=== PATIENT | female | born 1935 | race Caucasian/White ===

== ENCOUNTER 2017-09-14 10:46 | Outpatient (CLI) | payer MEDICARE, OTHER ==
--- NOTE | 2017-09-14 11:49 | RAD ---
AP PELVIS: History: Remote fall with persistent pelvic pain. FINDINGS: Femoral heads maintain normal contour. Joint spaces are symmetric. Minimal symmetric degenerative bruce nge seen at both hips. The bony pelvis is intact and unremarkable. No lytic or blastic lesions seen. Surgical clips overlie the lower pelvis. IMPRESSION: No acute abnormality. POS: [facility]
== END 2017-09-14 10:47 | disposition home or self-care (01) ==
LOC: TBSIIMAG 10:46
PROVIDERS: ATTEND Neurological Surgery
DX: R10.2 Pelvic and perineal pain (principal); M53.3 Sacrococcygeal disorders, not elsewhere classified
CPT/HCPCS: 72170

== ENCOUNTER 2019-08-31 08:35 | Outpatient (CLI) | payer MEDICARE, OTHER ==
[2019-08-31 14:46] LABS: #Basophils 0.1 thou/uL (0.0-0.2); #Eosinphils 0.2 thou/uL (0.0-0.7); #Lymphocytes 1.6 thou/uL (1.20-3.40); #Monocytes 0.6 thou/uL (0.11-0.59); #Neutrophils 3.7 thou/uL (1.40-6.50); %Basophils 1.3 % (0.0-1.0); %Eosinophils 2.5 % (0.0-10.0); %Lymphocytes 26.5 % (21.0-51.0); %Neutrophils 59.8 % (42.0-75.0); Mean Corpuscular HGB CONC 33.8 g/dL (32.0-36.0); Mean Corpuscular Volume 97.6 fL (78.0-98.0); Mean Platelet Volume 8.4 fL (7.4-10.4); Platelet Count 235 thou/uL (130-400); RBC Distribution Width 11.5 % (11.5-14.5); Red Blood Cell (RBC) Count 3.96 mill/uL (4.20-5.40); White Blood Cell (WBC) Count 6.2 thou/uL (4.8-10.8)
[2019-08-31 14:51] LABS: Bacteria/HPF None Seen HPF (None Seen); Bilirubin Negative (Negative); Blood, Urine Negative (Negative); Clarity Clear (Clear); Glucose, Urine (Dipstick) Normal (Negative); Leukocyte 25 Leu/uL (Negative); Nitrite Negative (Negative); Protein, Urine (Dipstick) Negative (Neg-Trace); RBC/HPF None Seen HPF (0-3); Squamous Epithelial 0-3 HPF (0-3); Urobilinogen Normal mg/dL (Less than 2); WBC/HPF 0-3 HPF (0-3)
[2019-08-31 14:53] LABS: Prothrombin Time 13.3 SEC (12.0-14.7)
[2019-08-31 15:08] LABS: Anion Gap 16 mmol/L (10-20); BUN (Urea Nitrogen) 28 mg/dL (9.8-20.1); Calc. Creatinine Clearance 0 mL/min (70-130); Calcium 9.8 mg/dL (7.8-10.44); Carbon Dioxide 23 mmol/L (23-31); Chloride 104 mmol/L (98-107); Estimated GFR-MDRD 41; Glucose 82 mg/dL (83-110); Potassium 4.7 mmol/L (3.5-5.1); Sodium 138 mmol/L (136-145)
--- NOTE | 2019-09-01 11:53 | EKG ---
Test Reason : Blood Pressure : / mmHG Vent. Rate : 052 BPM Atrial Rate : 052 BPM P-R Int : 122 ms QRS Dur : 098 ms QT Int : 448 ms P-R-T Axes : 030 -36 072 degrees QTc Int : 416 ms Sinus bradycardia Left axis deviation Incomplete right bundle branch block Abnormal ECG No previous ECGs available Confirmed by ROYCE MA ([id number]) on 09/01/2019 11:53:31 AM Referred By: KALI Confirmed By:ROYCE MA
== END 2019-08-31 08:36 | disposition home or self-care (01) ==
LOC: LABBT 08:35
PROVIDERS: ATTEND Orthopaedic Surgery
DX: Z01.818 Encounter for other preprocedural examination (principal); M17.11 Unilateral primary osteoarthritis, right knee
CPT/HCPCS: 80048; 81001; 85025; 85610; 87081; 93005; 93010

== ENCOUNTER 2019-09-05 05:32 | Day surgery (SDC) | payer MEDICARE, OTHER ==
[2019-08-31 12:59] VITALS: BMI 25.0
[2019-09-05] MEDS ORDERED: Sodium Chloride 0.9% 100 ML ONE (05:57)
[2019-09-05] MEDS ORDERED: Tranexamic Acid 1,000 MG/10 ML VIAL ONE ×2 (05:58→09:07)
[2019-09-05] MEDS ORDERED: Fentanyl 100 MCG/2 ML VIAL ONE ×5 (06:04→10:09)
[2019-09-05] MEDS ORDERED: Midazolam HCl 2 mg/2 ml Vial ONE (06:21)
[2019-09-05] MEDS ORDERED: Lidocaine 1% (PF) 30 ML VIAL ONE (06:22)
[2019-09-05] MEDS ORDERED: Famotidine/PF 20 mg/2ml Vial ONE (06:27)
[2019-09-05] MEDS ORDERED: Acetaminophen 325 MG TAB PO PRN ×2 (06:56→07:29)
[2019-09-05] MEDS ORDERED: Promethazine HCl 25 MG/ML VIAL IM PRN ×3 (06:56→08:11)
[2019-09-05] MEDS ORDERED: HYDROcodone/Acetaminophen 10/325 mg Tablet PO PRN ×3 (06:56→07:29)
[2019-09-05] MEDS ORDERED: Zolpidem Tartrate 5 MG TAB PO PRN ×2 (06:56→07:29)
[2019-09-05] MEDS ORDERED: Ondansetron PF 4 MG/2 ML Vial IVP PRN ×2 (06:56→07:29)
[2019-09-05] MEDS ORDERED: diphenhydrAMINE 25 MG CAP PO PRN (06:56)
[2019-09-05] MEDS ORDERED: Acetaminophen 500 MG TAB PO PRN (06:57)
[2019-09-05] MEDS ORDERED: traMADol HCl 50 MG TAB PO PRN (07:29)
[2019-09-05] MEDS ORDERED: Ropivacaine HCl/PF 250 ML in Premix Bag 1 BAG NERVE BLCK SCH (07:29)
[2019-09-05] MEDS ORDERED: Fentanyl 100 MCG/2 ML VIAL IV PRN (07:30)
[2019-09-05] MEDS ORDERED: Ondansetron HCl/PF 4 MG/2 ML Vial IVP PRN (08:11)
[2019-09-05] MEDS ORDERED: Promethazine HCl 25 MG/ML VIAL SLOW IVP PRN (08:11)
[2019-09-05] MEDS ORDERED: Aspirin 81 mg Enteric Coated Tablet PO SCH (09:00)
--- NOTE | 2019-09-05 09:29 | RAD ---
EXAM: Right knee: 2 views INDICATIONS: Postop follow-up. Knee replacement. COMPARISON: None. FINDINGS: Knee prosthesis is noted. Postoperative changes noted. Components appear in adequate positi on and alignment. IMPRESSION: Postop right knee
[2019-09-05] MEDS ORDERED: EPINEPHrine 1 MG/ML AMP ONE (10:29)
[2019-09-05] MEDS ORDERED: PROPOFOL 200 MG/20 ML VIAL ONE (10:37)
[2019-09-05] MEDS ORDERED: EPHEDRINE 25 MG/5 ML SYRINGE ONE (10:37)
[2019-09-05] MEDS ORDERED: Lidocaine 1% PF 5 ML VIAL ONE (10:37)
[2019-09-05] MEDS ORDERED: Ondansetron PF 4 MG/2 ML Vial ONE (10:37)
[2019-09-05] MEDS ORDERED: Ropivacaine 0.2% HCl/PF (40 MG/20 ML VIAL) ONE (10:37)
[2019-09-05] MEDS ORDERED: Bupivacaine HCl 0.5%/Epinephrine 1:200,000/PF 30 ml Vial ONE (10:37)
[2019-09-05] MEDS ORDERED: Dexamethasone 20 MG/5 ML VIAL ONE (10:37)
[2019-09-05] MEDS ORDERED: Labetalol HCl 100 MG/20 ML VIAL ONE (10:37)
[2019-09-05] MEDS ORDERED: Acetaminophen 500 MG TAB ONE (10:42)
--- NOTE | 2019-09-05 12:28 | OP ---
DATE OF PROCEDURE: 09/05/2019 PROCEDURE PERFORMED: Right total knee arthroplasty using [place] Triathlon 4 femur, 3 tibia, 11 mm CS X3 polyethylene, and A29 patella. FRONT END ALIGNMENT SPECIALIST: Mica Montoya PA-C. ESTIMATED BLOOD LOSS: Minimal. SPECIMENS: None. DRAINS: None. COMPLICATIONS: None. PROCEDURE IN DETAIL: After informed consent was obtained in the preoperative holding area, the patient was taken to the operative suite where general anesthesia was induced. Once adequate level of general anesthesia was obtained, the patient was positioned and a well-padded tourniquet was placed around the right proximal thigh. The right lower extremity was then prepped and draped in the usual sterile fashion. Prior to exsanguination, a time-out was called and all members of the surgical team agreed upon site, surgeon, and patient. The extremity was then exsanguinated and the tourniquet was raised. A midline longitudinal incision was then made directly over the patella extending 2 fingerbreadths above the superior pole of the patella and 2 fingerbreadths inferior to the inferior patellar pole of the patella. Deeper subcutaneous layers were dissected sharply and local bleeding was controlled with Bovie electrocautery. A quad tendon longitudinal split was then made sharply and a median parapatellar arthrotomy was carried out both sharp and with Bovie electrocautery, carried down to 1 fingerbreadth medial to the tibial tubercle. The knee was then placed into flexion and the patella was everted nicely, and a copious fat pad ectomy was performed allowing for greater exposure of the tibia. The computer-assisted distal femoral fiducial was then placed and pinned firmly, and the distal femoral cutting guide was pinned firmly into place. The oscillating saw was then used to remove the appropriate amount of bone. The 4-in-1 cutting block was then placed on the distal femur and the oscillating saw was used to remove the appropriate amount of bone off the anterior, posterior, and chamfer cuts. After completion of bone cuts, the anterior cruciate ligament was resected sharply and the posterior cruciate ligament retractor was placed and the tibia was subluxed for better exposure. Partial meniscectomies were carried out, and the tibial computer-assisted fiducial was pinned, and the cutting guide was placed. Oscillating saw was then used to remove the bone, with Hohmann retractors used to take care and protect the collateral ligaments. After the tibial resection was performed, a laminar axle bearing polisher was placed in between the freshened bone cuts. The knee placed at 90 degrees and further bilateral meniscectomies were carried out, and the curved osteotome and curettage were used to remove any excess bone spurs in the posterior compartment. The trial femoral component, tibial baseplate were placed with the appropriate polyethylene trial insert with an appropriate polyethylene spacer and patellar button. The knee was taken through full range of motion with flexion and extension from 0 to 90 degrees and patellar broach squarely in the trochlea without any squinting or subluxation noted. The knee was also stable to varus and valgus stressing at 0, 15, 45, and 90 degrees of flexion. The drawer was negative. All trial components were then removed and the keel punch was used to provide the appropriate defect in the tibia with a mallet. The freshened bone cuts were copiously irrigated with pulsatile lavage of about 1.5 L to remove all excess debris. The freshened bone cuts were then dried with suction and lap sponge. The knee was placed in flexion and retractors were placed to provide access to all bone cuts. Tobramycin-impregnated methyl methacrylate cement was then placed on the freshened bone cuts and implants which were malleted firmly into place. Curettage and Blevins elevators were used to remove any excess bone cement. The knee was placed into full extension and the patellar button was placed under compression, and the cement was allowed to cure. Once completed, the components were again taken through full range of motion and copious irrigation of the knee was carried out with another liter of normal saline. All components were inspected fully with full range of motion and varus and valgus stressing. There was no laxity noted and full extension was observed clinically. Primary closure was accomplished with #2 interrupted Vicryl stitch of the arthrotomy defect. This was oversewn with a #2 running Quill barbed stitch. The gravitational platelet system was then injected into the arthrotomy prior to closure. The subcutaneous layer was then closed with a running 0 barbed Monocryl stitch and skin closure accomplished with a running subcuticular 3-0 Monocryl barbed Quill stitch and augmented with cement on the skin. Tourniquet was lowered. Good spontaneous return of distal pulses was noted clinically and a sterile dressing was applied to the incision. The procedure was terminated without any complications. The patient was awakened in the operative suite and the was removed, and the patient was taken to the recovery room in stable condition. Job ID: [id number]
[2019-09-05] MEDS: HYDROcodone/Acetaminophen 10/325 mg Tablet PO PRN ×3 (13:31→22:17)
[2019-09-05] MEDS: Ketorolac Tromethamine 30 MG/ML VIAL IVP SCH ×2 (13:32→22:17)
[2019-09-05] MEDS: CEFAZOLIN 2 GM in Premix Bag 1 BAG IVPB SCH ×2 (13:33→22:16)
[2019-09-05] MEDS: Sodium Chloride 0.9% 1,000 ML IV SCH ×3 (13:33→20:09)
--- NOTE | 2019-09-05 13:43 | PDOC.HHP ---
Hospitalist HPI - History of Present Illness Elective right knee arthroplasty History of Present Illness: Consult: Medical management Referral source: Dr. Berger Ms. Belllo 83-year-old lady with past medical history of CAD, hypothyroidism, hypertension, who presents for elective right total knee arthroplasty. She is reportedly been doing this problem for the last 6 months and experiencing chronic pain of her right knee. She had a torn meniscus and sought evaluation by an orthopedic surgeon. We have been consulted for medical management of her chronic conditions. Of note, she has coronary artery disease status post 3 stents in 2016 and 2017. She has been off Plavix for over a year. Additionally she has medications for hypothyroidism, depression, hyperlipidemia , hypertension. Hospitalist ROS - Review of Systems Constitutional: denies: fever, chills, sweats, weakness, malaise, other Eyes: denies: pain, vision change, conjunctivae inflammation, eyelid inflammation, redness, other ENT: denies: ear pain, ear discharge, nose pain, nose discharge, nose congestion , mouth pain, mouth swelling, throat pain, throat swelling, other Respiratory: denies: cough, dry, shortness of breath, hemoptysis, SOB with excertion, pleuritic pain, sputum, wheezing, other Cardiovascular: denies: chest pain, palpitations, orthopnea, paroxysmal noc. dyspnea, edema, light headedness, other Gastrointestinal: denies: nausea, vomiting, abdominal pain, diarrhea, constipation, melena, hematochezia, other Genitourinary: denies: dysuria, frequency, incontinence, hematuria, retention, other Musculoskeletal: reports: leg pain. denies: neck pain, shoulder pain, arm pain , back pain, hand pain, foot pain, other Skin: denies: rash, lesions, marita, bruising, other Neurological: denies: weakness, numbness, incoordination, change in speech, confusion, seizures, other - Medication Medications: Active Medications Generic Name Dose Route Start Last Admin Trade Name Freq PRN Reason Stop Dose Admin Hydrocodone Bitart/Acetaminophen 2 tab 09/05/19 07:29 09/05/19 13:31 [place] 10/325 PO 2 tab Q4H PRN Administration PAIN (4-6) Cefazolin Sodium/Dextrose 2 gm 50 mls @ 100 mls/hr 09/05/19 14:00 09/05/19 13 :33 / Device IVPB 09/05/19 22:29 50 mls Q8HR SABA Administration Sodium Chloride 1,000 mls @ 100 mls/hr 09/05/19 07:00 09/05/19 13:33 Normal Saline 0.9% IV 1,000 mls .Q10H SABA Administration Ketorolac Tromethamine 15 mg 09/05/19 14:00 09/05/19 13:32 Toradol IVP 09/07/19 14:01 15 mg Q8HR SABA Administration Hospitalist History - Past Medical History Cardiac: reports: CAD, HTN Pulmonary: reports: no pertinent history [employer] TECH[employer]ICIAN: reports: no pertinent history Gastrointestinal: reports: GERD Heme/Onc: reports: no pertinent history Hepatobiliary: reports: no pertinent history Psych: reports: no pertinent history Musculoskeletal: reports: Osteoarthritis Rheumatologic: reports: no pertinent history Infectious Disease: reports: no pertinent history ENT: reports: no pertinent history Renal/: reports: no pertinent history Endocrine: reports: Hyperthyroidism Dermatology: reports: no pertinent history - Past Surgical History Past Surgical History: reports: Breast Biopsy, Hysterectomy - Family History Family History: reports: no pertinent history - Social History Smoking Status: Former smoker Alcohol: reports: None Drugs: reports: none Living Situation: With Family Activity level: uses cane/walker - Exam General Appearance: NAD, awake alert Eye: PERRL, anicteric sclera ENT: normocephalic atraumatic, no oropharyngeal lesions, moist mucosa Neck: supple, symmetric, no JVD, no thyromegaly, no lymphadenopathy, no carotid bruit Heart: RRR, no murmur, no gallops, no rubs, normal peripheral pulses Respiratory: CTAB, no wheezes, no rales, no ronchi, normal chest expansion, no tachypnea, normal percussion Gastrointestinal: soft, non-tender, non-distended, normal bowel sounds, no palpable masses, no hepatomegaly, no splenomegaly, no bruit Extremities: no cyanosis, no clubbing, no edema Skin: normal turgor, no lesions, no rashes Neurological: cranial nerve grossly intact, normal sensation to touch, no weakness, no focal deficits, no new deficit Musculoskeletal: normal tone, normal strength, no muscle wasting Psychiatric: normal affect, normal behavior, A&O x 3 Hospitalist Results - Labs Result Diagrams: 09/06/19 04:50 Lab results: Labs from 08/31 WBC count 6.2 hemoglobin 13 hematocrit 38.6 MCV 97.6 platelet count 235 sodium 138 potassium 4.7 chloride 104 creatinine 1.25 BUN 28 glucose 82 calcium 9.8 X-ray of the right knee shows knee prosthesis is noted as well as postoperative changes. The components of the prosthesis appear in adequate position and alignment. Hospitalist H&P A/P - Problem (1) Status post arthroscopic knee surgery Status: Acute (2) Coronary artery disease Code(s): I25.10 - ATHSCL HEART DISEASE OF [place] CORONARY ARTERY W/O ANG PCTRS Status: Acute (3) HTN (hypertension) Code(s): I10 - ESSENTIAL (PRIMARY) HYPERTENSION Status: Acute (4) Hypothyroidism Code(s): E03.9 - HYPOTHYROIDISM, UNSPECIFIED Status: Acute (5) GERD (gastroesophageal reflux disease) Code(s): K21.9 - GASTRO-ESOPHAGEAL REFLUX DISEASE WITHOUT ESOPHAGITIS Status: Acute (6) HLD (hyperlipidemia) Code(s): E78.5 - HYPERLIPIDEMIA, UNSPECIFIED Status: Acute (7) Depression Code(s): F32.9 - MAJOR DEPRESSIVE DISORDER, SINGLE EPISODE, UNSPECIFIED Status : Acute - Plan Plan: She is postop day 1 Encourage early mobilization as per PT/surgery recommendations Continue incentive spirometry Resume medications from home for chronic conditions including Coreg, aspirin, atorvastatin, levothyroxine, montelukast, pantoprazole, and citalopram Pain appears adequately well controlled, continue with the current regimen Thank you for this consultation. We will continue to follow along.
[2019-09-05] MEDS: Aspirin 81 mg Enteric Coated Tablet PO SCH ×2 (15:54→20:07)
[2019-09-05] MEDS: Ascorbic Acid 500 mg Chewable Tablet PO SCH (15:54)
[2019-09-05] MEDS: Carvedilol 6.25 MG TAB PO SCH ×2 (15:54→18:33)
[2019-09-05] MEDS: Citalopram 10 MG TAB PO SCH (15:55)
[2019-09-05] MEDS: Montelukast Sodium 10 mg Tablet PO SCH (20:07)
[2019-09-05] MEDS: Atorvastatin Calcium 10 MG TAB PO SCH (20:07)
[2019-09-05] MEDS: Oxybutynin 5 MG TAB PO SCH (20:07)
[2019-09-05] MEDS ORDERED: LEGATRIN PO SCH (21:00)
[2019-09-06] MEDS: HYDROcodone/Acetaminophen 10/325 mg Tablet PO PRN ×3 (02:14→11:29)
[2019-09-06 05:11] LABS: Hemoglobin 9.6 g/dL (12.0-16.0); Mean Corpuscular HGB CONC 34.2 g/dL (32.0-36.0); Mean Corpuscular Hemoglobin 33.7 pg (27.0-31.0); Mean Corpuscular Volume 98.4 fL (78.0-98.0); Mean Platelet Volume 8.3 fL (7.4-10.4); Platelet Count 187 thou/uL (130-400); RBC Distribution Width 11.4 % (11.5-14.5); Red Blood Cell (RBC) Count 2.84 mill/uL (4.20-5.40)
[2019-09-06] MEDS: Levothyroxine Sodium 112 MCG TAB PO SCH (05:52)
[2019-09-06] MEDS: Ketorolac Tromethamine 30 MG/ML VIAL IVP SCH ×3 (05:53→22:11)
[2019-09-06] MEDS: Ferrous Gluconate 324 MG TAB PO SCH ×2 (07:12→17:26)
[2019-09-06] MEDS: Multivitamin W/ Minerals 1 TAB PO SCH (08:59)
[2019-09-06] MEDS: Aspirin 81 mg Enteric Coated Tablet PO SCH ×2 (08:59→20:02)
[2019-09-06] MEDS: Senokot S 8.6-50 MG TAB PO SCH ×2 (09:00→20:04)
[2019-09-06] MEDS: Carvedilol 6.25 MG TAB PO SCH (09:00)
[2019-09-06] MEDS: Ascorbic Acid 500 mg Chewable Tablet PO SCH (09:00)
[2019-09-06] MEDS: Sodium Chloride 0.9% 1,000 ML IV SCH ×2 (09:01→12:25)
[2019-09-06] MEDS: Citalopram 10 MG TAB PO SCH (09:59)
[2019-09-06] MEDS: traMADol HCl 50 MG TAB PO PRN ×2 (09:59→20:03)
[2019-09-06] MEDS ORDERED: Loperamide HCl 2 MG CAP PO PRN (11:28)
--- NOTE | 2019-09-06 14:14 | PDOC.HOSPP ---
- Subjective Encounter Date: 09/06/19 Encounter Time: 14:11 Subjective: Has had episodes of diarrhea overnight, loose and watery. Otherwise she is participating in physical therapy without complaints. Pain is well controlled. - Objective Vital Signs & Weight: Vital Signs (12 hours) Temp Pulse Resp BP BP Pulse Ox 09/06/19 09:00 131/65 09/06/19 08:30 94 L 09/06/19 07:09 98.2 F 65 16 131/65 94 L Weight Weight 150 lb I&O: 09/05/19 09/06/19 09/07/19 06:59 06:59 06:59 Intake Total 1300 900 Output Total 800 1025 Balance 500 -125 Result Diagrams: 09/06/19 04:50 Hospitalist ROS - Review of Systems All other systems reviewed; all pertinent +/- noted in HPI/Subj - Medication Medications: Active Medications Generic Name Dose Route Start Last Admin Trade Name Freq PRN Reason Stop Dose Admin Hydrocodone Bitart/Acetaminophen 2 tab 09/05/19 07:29 09/06/19 11:29 [place] 10/325 PO 2 tab Q4H PRN Administration PAIN (4-6) Ascorbic Acid 500 mg 09/05/19 09:00 09/06/19 09:00 Vitamin C PO 500 mg DAILY SABA Administration Aspirin 81 mg 09/05/19 09:00 09/06/19 08:59 Ecotrin PO 81 mg BID SABA Administration Atorvastatin Calcium 10 mg 09/05/19 21:00 09/05/19 20:07 Lipitor PO 10 mg HS SABA Administration Carvedilol 6.25 mg 09/06/19 09:00 09/06/19 09:00 Coreg PO 6.25 mg 0900 SABA Administration Cholecalciferol 1,000 units 09/05/19 09:00 09/06/19 08:59 Vitamin D3 PO 1,000 units DAILY SABA Administration Citalopram Hydrobromide 10 mg 09/05/19 09:00 09/06/19 09:59 Celexa PO 10 mg DAILY SABA Administration Fentanyl 50 mcg 09/05/19 07:30 09/06/19 00:27 Sublimaze IV 50 mcg Q1H PRN Administration BREAKTHROUGH PAIN Ferrous Gluconate 324 mg 09/06/19 08:00 09/06/19 07:12 Fergon PO 324 mg BID-WM SABA Administration Sodium Chloride 1,000 mls @ 100 mls/hr 09/05/19 07:00 09/06/19 12:25 Normal Saline 0.9% IV Not Given .Q10H SABA Ropivacaine 250 ml/ Device 250 mls @ 0 mls/hr 09/05/19 07:29 09/06/19 09:54 NERVE BLCK 09/07/19 07:30 250 mls INF SABA Administration As Directed Iron/Minerals/Multivitamins 1 tab 09/06/19 09:00 09/06/19 08:59 Theragran M PO 1 tab DAILY SABA Administration Ketorolac Tromethamine 15 mg 09/05/19 14:00 09/06/19 14:00 Toradol IVP 09/07/19 14:01 15 mg Q8HR SABA Administration Levothyroxine Sodium 112 mcg 09/06/19 06:00 09/06/19 05:52 Synthroid PO 112 mcg 0600 SABA Administration Loperamide HCl 2 mg 09/06/19 11:28 09/06/19 12:24 Imodium PO 2 mg DAILYPRN PRN Administration Diarrhea/Loose Stools Montelukast Sodium 10 mg 09/05/19 21:00 09/05/19 20:07 Singulair PO 10 mg HS SABA Administration Oxybutynin Chloride 5 mg 09/05/19 21:00 09/05/19 20:07 Ditropan PO 5 mg HS SABA Administration Pantoprazole Sodium 40 mg 09/05/19 21:00 09/05/19 20:07 Protonix PO 40 mg HS SABA Administration Senna/Docusate Sodium 2 tab 09/06/19 09:00 09/06/19 09:00 Senokot S PO Not Given BID SABA Sodium Chloride 10 ml 09/05/19 06:56 09/06/19 14:04 Flush - Normal Saline IVF 10 ml PRN PRN Administration Saline Flush Tramadol HCl 100 mg 09/05/19 07:29 09/06/19 09:59 Ultram PO 100 mg Q6H PRN Administration Moderate Pain 4-6 - Exam General Appearance: NAD, awake alert Eye: PERRL, anicteric sclera ENT: normocephalic atraumatic, no oropharyngeal lesions, moist mucosa Neck: supple, symmetric, no JVD, no thyromegaly, no lymphadenopathy, no carotid bruit Heart: RRR, no murmur, no gallops, no rubs, normal peripheral pulses Respiratory: CTAB, no wheezes, no rales, no ronchi, normal chest expansion, no tachypnea, normal percussion Gastrointestinal: soft, non-tender, non-distended, normal bowel sounds, no palpable masses, no hepatomegaly, no splenomegaly, no bruit Extremities: no cyanosis, no clubbing, no edema Extremities - other findings: bandage on right knee, intact, clean Skin: normal turgor, no lesions, no rashes Neurological: cranial nerve grossly intact, normal sensation to touch, no weakness, no focal deficits, no new deficit Musculoskeletal: normal tone, normal strength, no muscle wasting Psychiatric: normal affect, normal behavior, A&O x 3 Hosp A/P (1) Status post arthroscopic knee surgery Status: Acute (2) Coronary artery disease Code(s): I25.10 - ATHSCL HEART DISEASE OF [place] CORONARY ARTERY W/O ANG PCTRS Status: Acute (3) HTN (hypertension) Code(s): I10 - ESSENTIAL (PRIMARY) HYPERTENSION Status: Acute (4) Hypothyroidism Code(s): E03.9 - HYPOTHYROIDISM, UNSPECIFIED Status: Acute (5) GERD (gastroesophageal reflux disease) Code(s): K21.9 - GASTRO-ESOPHAGEAL REFLUX DISEASE WITHOUT ESOPHAGITIS Status: Acute (6) HLD (hyperlipidemia) Code(s): E78.5 - HYPERLIPIDEMIA, UNSPECIFIED Status: Acute (7) Depression Code(s): F32.9 - MAJOR DEPRESSIVE DISORDER, SINGLE EPISODE, UNSPECIFIED Status : Acute - Plan Continue probiotics for diarrhea, could be antibiotic associated. Imodium PRN Continue IS and physical therapy Pain control as per surgery team Continue other medication from home for chronic conditions We will continue to follow along with you.
[2019-09-06] MEDS ORDERED: Carvedilol 3.125 MG TAB PO SCH (17:00)
[2019-09-06] MEDS: Montelukast Sodium 10 mg Tablet PO SCH (20:02)
[2019-09-06] MEDS: Atorvastatin Calcium 10 MG TAB PO SCH (20:02)
[2019-09-06] MEDS: Oxybutynin 5 MG TAB PO SCH (20:03)
[2019-09-07] MEDS: HYDROcodone/Acetaminophen 10/325 mg Tablet PO PRN ×3 (02:40→13:02)
[2019-09-07] MEDS: Sodium Chloride 0.9% 1,000 ML IV SCH (02:41)
[2019-09-07] MEDS: Ketorolac Tromethamine 30 MG/ML VIAL IVP SCH ×2 (05:09→14:21)
[2019-09-07] MEDS: Levothyroxine Sodium 112 MCG TAB PO SCH (05:09)
[2019-09-07] MEDS: traMADol HCl 50 MG TAB PO PRN (05:10)
[2019-09-07 05:14] LABS: Hemoglobin 9.4 g/dL (12.0-16.0); Mean Corpuscular HGB CONC 32.6 g/dL (32.0-36.0); Mean Corpuscular Hemoglobin 31.9 pg (27.0-31.0); Mean Corpuscular Volume 97.9 fL (78.0-98.0); Mean Platelet Volume 8.4 fL (7.4-10.4); Platelet Count 171 thou/uL (130-400); RBC Distribution Width 11.5 % (11.5-14.5); Red Blood Cell (RBC) Count 2.93 mill/uL (4.20-5.40); White Blood Cell (WBC) Count 6.6 thou/uL (4.8-10.8)
[2019-09-07] MEDS ORDERED: Lactinex Tablet PO SCH (09:00)
[2019-09-07] MEDS: Multivitamin W/ Minerals 1 TAB PO SCH (09:06)
[2019-09-07] MEDS: Ascorbic Acid 500 mg Chewable Tablet PO SCH (09:06)
[2019-09-07] MEDS: Ferrous Gluconate 324 MG TAB PO SCH (09:06)
[2019-09-07] MEDS: Aspirin 81 mg Enteric Coated Tablet PO SCH (09:06)
[2019-09-07] MEDS: Carvedilol 6.25 MG TAB PO SCH (09:07)
[2019-09-07] MEDS: Senokot S 8.6-50 MG TAB PO SCH (09:18)
[2019-09-07 10:50] VITALS: TEMP 98.1
[2019-09-07] MEDS: Citalopram 10 MG TAB PO SCH (13:06)
[2019-09-07 14:23] VITALS: BP 134/68
--- NOTE | 2019-09-08 09:14 | DIS ---
DATE OF ADMISSION: 09/05/2019 DATE OF DISCHARGE: 09/07/2019 This is Mica Montoya PA-C dictating a report for Mendoza Berger MD. CONSULTANTS: Include [facility] and [facility]. PREOPERATIVE DIAGNOSIS: Advanced end-stage tricompartmental osteoarthritis of the right knee. POSTOPERATIVE DIAGNOSIS: Advanced end-stage tricompartmental osteoarthritis of the right knee. PROCEDURE PERFORMED: [place] [employer] components using computer-assisted navigation total knee replacement. BRIEF HOSPITAL COURSE: This is an 83-year-old female, who was indicated for the above-mentioned procedure after failing outpatient conservative management of her knee osteoarthritis. She did well in the operative suite, and postoperatively, she was admitted to [facility] on [address] here at [facility]. She worked with physical and occupational therapists. On postoperative day #0, she was up and out of bed, standing to bedside, and walking a few feet. She continued to progress well with physical therapy doing both individual and group exercises and ambulating in the samuel. Her pain was managed by Anesthesiology Team. No complications were incurred throughout her hospital stay. On postoperative day #2, she was indicated for discharge home. DISCHARGE DISPOSITION: Home with outpatient physical therapy. DISCHARGE CONDITION: Stable. DISCHARGE INSTRUCTIONS: The patient will follow up as scheduled with Dr. Berger as well as outpatient physical therapy. She will keep her surgical site clean, dry, and intact. DISCHARGE MEDICATIONS: See MAR. Job ID: [id number]
== END 2019-09-07 14:36 | disposition home or self-care (01) ==
LOC: SDC 05:32 → SJJU 07:00 → SDC 09-07 14:36
PROVIDERS: ATTEND Orthopaedic Surgery
PROC: 0SRC0J9 Replacement of Right Knee Joint with Synthetic Substitute, Cemented, Open Approach (ICD-10-PCS; principal; 2019-09-05)
PROC: 8E0YXBZ Computer Assisted Procedure of Lower Extremity (ICD-10-PCS; 2019-09-05)
PROC: 3E0T3BZ Introduction of Anesthetic Agent into Peripheral Nerves and Plexi, Percutaneous Approach (ICD-10-PCS; 2019-09-05)
PROC: 3E0T3BZ Introduction of Anesthetic Agent into Peripheral Nerves and Plexi, Percutaneous Approach (ICD-10-PCS; 2019-09-05)
DX: M17.11 Unilateral primary osteoarthritis, right knee (principal); G89.18 Other acute postprocedural pain; I10 Essential (primary) hypertension; E03.9 Hypothyroidism, unspecified; I25.10 Atherosclerotic heart disease of native coronary artery without angina pectoris; F32.9 Major depressive disorder, single episode, unspecified; K21.9 Gastro-esophageal reflux disease without esophagitis; Z87.891 Personal history of nicotine dependence; Z79.82 Long term (current) use of aspirin; Z79.899 Other long term (current) drug therapy; Z88.2 Allergy status to sulfonamides; Z95.5 Presence of coronary angioplasty implant and graft
CPT/HCPCS: 20985; 27447; 64445; 64448; 73560; 85027; 97116 ×3; 97139 ×4; 97150 ×2; 97530; 98961; C1713; C1776; 36415; J0171; J0670; J0690; J1100; J1885; J2001; J2250; J2405; J2704; J2795; J3010; J3370; J3490; S0028

== ENCOUNTER 2022-02-02 14:37 | Outpatient (CLI) | payer MEDICARE, OTHER ==
[2022-02-02 15:07] LABS: #Monocytes 0.2 10x3/uL (0.0-1.1); #Neutrophils 5.6 10x3/uL (1.5-8.4); %Basophils 0.3 % (0.0-2.0); %Lymphocytes 9.5 % (18.0-47.0); %Monocytes 3.1 % (0.0-10.0); %Neutrophils 86.6 % (40.0-75.0); Hemoglobin 10.9 g/dL (12.0-15.5); Mean Corpuscular HGB CONC 30.9 g/dL (32.0-36.0); Mean Corpuscular Hemoglobin 31.8 pg (27.0-33.0); Mean Corpuscular Volume 102.9 fl (81.6-98.3); Mean Platelet Volume 9.9 fl (7.4-10.4); Platelet Count 281 10x3/uL (150-450); RBC Distribution Width 14.9 % (11.5-14.5); Red Blood Cell (RBC) Count 3.43 10x6/uL (3.90-5.03); White Blood Cell (WBC) Count 6.4 10x3/uL (3.5-10.5)
[2022-02-02 15:32] LABS: Anion Gap 13 mmol/L (10-20); BUN (Urea Nitrogen) 30 mg/dL (9.8-20.1); Calc. Creatinine Clearance 0 mL/min (70-130); Calcium 9.5 mg/dL (7.8-10.44); Carbon Dioxide 25 mmol/L (23-31); Chloride 107 mmol/L (98-107); Estimated GFR 37; Glucose 227 mg/dL (83-110); Potassium 5.4 mmol/L (3.5-5.1); Sodium 140 mmol/L (136-145)
== END 2022-02-02 14:38 | disposition home or self-care (01) ==
LOC: LABBT 14:37
PROVIDERS: ATTEND Orthopaedic Surgery
DX: Z01.812 Encounter for preprocedural laboratory examination (principal); M12.811 Other specific arthropathies, not elsewhere classified, right shoulder; Z20.822 Contact with and (suspected) exposure to COVID-19
CPT/HCPCS: 80048; 85025; 87811

== ENCOUNTER 2022-02-05 07:27 | Inpatient (IN) | payer MEDICARE, OTHER ==
[2022-02-03 15:54] VITALS: BMI 22.4
[2022-02-05] MEDS ORDERED: Tranexamic Acid 1,000 MG/10 ML VIAL ONE (08:06)
[2022-02-05] MEDS ORDERED: Sodium Chloride 0.9% 100 ML ONE ×2 (08:06→10:03)
[2022-02-05] MEDS ORDERED: Vancomycin 1 GM/200 ML BAG ONE (08:06)
[2022-02-05] MEDS ORDERED: fentaNYL Citrate/PF 100 MCG/2 ML SYRINGE ONE ×2 (08:46→10:10)
[2022-02-05] MEDS ORDERED: Propofol 500 MG/50 ML VIAL ONE (08:46)
[2022-02-05] MEDS ORDERED: Alirocumab [Praluent Pen] 150 MG/ML Pen.Injctr SC SCH (09:00)
[2022-02-05] MEDS ORDERED: Methotrexate Sodium 2.5 MG TAB PO SCH ×2 (09:00→10:00)
[2022-02-05] MEDS ORDERED: Midazolam HCl 2 mg/2 ml Vial ONE (09:12)
[2022-02-05] MEDS ORDERED: Lidocaine 1% (PF) 30 ML VIAL ONE (09:12)
[2022-02-05] MEDS ORDERED: Fentanyl 100 MCG/2 ML VIAL ONE (09:12)
[2022-02-05] MEDS ORDERED: ceFAZolin 2 GM/Dextrose 50 ML 2 GM in Premix Bag 1 BAG IVPB SCH (09:45)
[2022-02-05] MEDS ORDERED: HYDROcodone/Acetaminophen 7.5/325 mg Tablet PO PRN ×2 (09:45)
[2022-02-05] MEDS ORDERED: Fentanyl 100 MCG/2 ML VIAL IV PRN (09:46)
[2022-02-05] MEDS ORDERED: Acetaminophen 500 MG TAB PO PRN (09:46)
[2022-02-05] MEDS ORDERED: traMADol HCl 50 MG TAB PO PRN ×2 (10:00)
[2022-02-05] MEDS ORDERED: ALIROCUMAB 150 MG/ML SC SCH (10:00)
[2022-02-05] MEDS ORDERED: Ropivacaine 0.2% 550 ML 550 ML NERVE BLCK SCH (10:00)
[2022-02-05] MEDS ORDERED: Ondansetron PF 4 MG/2 ML Vial IVP PRN (10:00)
[2022-02-05] MEDS ORDERED: Zolpidem Tartrate 5 MG TAB PO PRN (10:00)
[2022-02-05] MEDS ORDERED: HYDROcodone/Acetaminophen 10/325 mg Tablet PO PRN (10:00)
[2022-02-05] MEDS ORDERED: Promethazine HCl 25 MG/ML VIAL IM PRN (10:00)
[2022-02-05] MEDS ORDERED: CEFAZOLIN 2 GM VIAL ONE (10:03)
[2022-02-05] MEDS ORDERED: Rocuronium Bromide 10 MG/ML (10ML VIAL) ONE (10:14)
[2022-02-05] MEDS ORDERED: Ropivacaine 2% HCl/PF (20 MG/10 ML VIAL) ONE (10:14)
[2022-02-05] MEDS ORDERED: Ondansetron PF 4 MG/2 ML Vial ONE (10:14)
[2022-02-05] MEDS ORDERED: Ropivacaine 0.5% HCl/PF (150 MG/30 ML VIAL) ONE (10:14)
[2022-02-05] MEDS ORDERED: Lidocaine 1% PF 5 ML VIAL ONE (10:14)
[2022-02-05] MEDS ORDERED: ePHEDrine 50 MG/ML VIAL ONE (10:14)
[2022-02-05] MEDS ORDERED: Glycopyrrolate 0.2 MG/ML 5 ML SYRINGE ONE (10:14)
[2022-02-05] MEDS ORDERED: PROPOFOL 200 MG/20 ML VIAL ONE (10:14)
[2022-02-05] MEDS ORDERED: Hydrocortisone Sod Succ/PF 100 mg/2 ml Vial ONE (10:28)
[2022-02-05] MEDS: Lactated Ringer's 1,000 ML IV SCH (14:00)
[2022-02-05] MEDS: Ketorolac Tromethamine 30 MG/ML VIAL IVP PRN (17:48)
[2022-02-05] MEDS: SODIUM CHLORIDE 0.9% IVPB SCH (17:50)
[2022-02-05] MEDS: CEFAZOLIN IVPB SCH (17:50)
[2022-02-05] MEDS: Aspirin 81 mg Enteric Coated Tablet PO SCH (20:44)
[2022-02-05] MEDS: Folic Acid 1 MG TAB PO SCH (20:44)
[2022-02-05] MEDS: Carvedilol 6.25 MG TAB PO SCH (20:44)
[2022-02-05] MEDS: HYDROcodone/Acetaminophen 10/325 mg Tablet PO PRN (20:47)
[2022-02-05] MEDS ORDERED: Ezetimibe 10 MG TAB PO SCH (21:00)
[2022-02-05] MEDS ORDERED: Amlodipine 5 MG TAB PO SCH (21:00)
[2022-02-05] MEDS ORDERED: Montelukast Sodium 10 mg Tablet PO SCH (21:00)
[2022-02-05] MEDS ORDERED: Non-Formulary Item 1 EACH (Amlodipine Besylate [Norvasc] 2.5 MG Tablet) PO SCH (21:00)
[2022-02-05] MEDS ORDERED: Oxybutynin 5 MG TAB PO SCH (21:00)
[2022-02-06] MEDS: SODIUM CHLORIDE 0.9% IVPB SCH (02:16)
[2022-02-06] MEDS: CEFAZOLIN IVPB SCH (02:16)
[2022-02-06] MEDS: Lactated Ringer's 1,000 ML IV SCH (02:16)
[2022-02-06] MEDS: Ketorolac Tromethamine 30 MG/ML VIAL IVP PRN (04:03)
[2022-02-06] MEDS ORDERED: Levothyroxine Sodium 125 MCG TAB PO SCH (06:00)
[2022-02-06] MEDS ORDERED: Citalopram 10 MG TAB PO SCH (09:00)
[2022-02-06] MEDS ORDERED: predniSONE 5 MG TAB PO SCH (09:00)
[2022-02-06] MEDS: Folic Acid 1 MG TAB PO SCH (09:29)
[2022-02-06] MEDS: Aspirin 81 mg Enteric Coated Tablet PO SCH (09:29)
[2022-02-06] MEDS: Carvedilol 6.25 MG TAB PO SCH (09:30)
[2022-02-06] MEDS: HYDROcodone/Acetaminophen 10/325 mg Tablet PO PRN (11:54)
[2022-02-06 13:53] VITALS: BP 138/71; TEMP 98.2
== END 2022-02-06 14:26 | disposition home or self-care (01) | DRG 483 ==
LOC: SDC 07:27 → SURG B 09:35
PROVIDERS: ADMIT Orthopaedic Surgery; ATTEND Orthopaedic Surgery
PROC: 0RRJ00Z Replacement of Right Shoulder Joint with Reverse Ball and Socket Synthetic Substitute, Open Approach (ICD-10-PCS; principal; 2022-02-05)
DX: M19.011 Primary osteoarthritis, right shoulder (principal); Z20.822 Contact with and (suspected) exposure to COVID-19; E78.5 Hyperlipidemia, unspecified; Z96.651 Presence of right artificial knee joint; I10 Essential (primary) hypertension; Z96.698 Presence of other orthopedic joint implants; Z98.890 Other specified postprocedural states; Z95.5 Presence of coronary angioplasty implant and graft; Z82.49 Family history of ischemic heart disease and other diseases of the circulatory system; Z83.71 Family history of colonic polyps; Z79.899 Other long term (current) drug therapy; Z88.2 Allergy status to sulfonamides; Z88.8 Allergy status to other drugs, medicaments and biological substances
CPT/HCPCS: 80048; 85025; 87811; A4306; C1713; C1776; J0690; J1720; J1885; J2001; J2250; J2405; J2704; J2710; J2795; J3010; J3370; J3490; J7120; J7512